=== PATIENT | female | born 1960 | race Two or more races ===

== ENCOUNTER 2017-12-13 05:53 | Emergency (ER) | payer MEDICAID ==
[~2017-12-13] VITALS: Ht 157.5 cm; Wt 90.7 kg
[2017-12-13 05:58] VITALS: BP 146/81
== END 2017-12-13 06:42 | disposition home or self-care (01) ==
LOC: ER 05:55
DX: F41.9 Anxiety disorder, unspecified (principal); F32.9 Major depressive disorder, single episode, unspecified; Z76.0 Encounter for issue of repeat prescription